=== PATIENT | female | born 1980 | race Caucasian/White ===

== ENCOUNTER → 2023-09-04 12:35 | Outpatient (REF) | payer BC, SELFPAY | LOC: HWWDC 12:35 | PROVIDERS: ATTENDING PHYSICIAN Obstetrics & Gynecology; FAMILY PHYSICIAN Nurse Practitioner Family | DX: Z12.31 Encounter for screening mammogram for malignant neoplasm of breast (principal) | CPT/HCPCS: 77063; 77067 ==

== ENCOUNTER → 2024-09-05 08:49 | Outpatient (REF) | payer BC, SELFPAY | LOC: HWWDC 08:49 | PROVIDERS: ATTENDING PHYSICIAN Obstetrics & Gynecology; FAMILY PHYSICIAN Nurse Practitioner Family | DX: Z12.31 Encounter for screening mammogram for malignant neoplasm of breast (principal) | CPT/HCPCS: 77063; 77067 ==